=== PATIENT | female | born 1940 | race Caucasian/White ===

== ENCOUNTER → 2017-01-30 | Outpatient (CLI) | payer MEDICARE | END | disposition home or self-care (01) | LOC: GMAM 12:48 | PROVIDERS: ATTEND Family Medicine | DX: E03.9 Hypothyroidism, unspecified (principal); R29.898 Other symptoms and signs involving the musculoskeletal system ==

== ENCOUNTER → 2017-02-01 | Outpatient (CLI) | payer MEDICARE, OTHER ==
--- NOTE | 2017-02-02 11:53 | MRI ---
Study: MRI of the Left Hip. Indication: JOINT PAIN Technique: Multiplanar, multi sequence MRI of the left hip was obtained without intravenous contrast. Comparison: None. Findings : Grade 4 chondral loss throughout the entirety of the left hip joint with cortical remodeling and patchy subchondral cystic change of the medial aspects of the joint. There is mild medial migration of the femoral head. No acute fracture or osteonecrosis. Small joint line osteophytes. Degenerative tearing throughout the left hip labrum. Tendinosis bilateral hamstring tendon origins. Mild pubic symphysis osteoarthritis. Moderate to severe right hip osteoarthritis. IMPRESSION: Severe left hip osteoarthritis as above. No acute fracture or osteonecrosis. Additional findings as above. Electronically signed by: Dhruv Coppola MD 02/02/2017 11:52 AM CDT
== END ==
LOC: MRI 10:09
PROVIDERS: ATTEND Family Medicine
DX: R93.7 Abnormal findings on diagnostic imaging of other parts of musculoskeletal system (principal); R29.898 Other symptoms and signs involving the musculoskeletal system; M16.12 Unilateral primary osteoarthritis, left hip

== ENCOUNTER → 2017-05-28 | Outpatient (CLI) | payer MEDICARE, OTHER ==
--- NOTE | 2017-06-06 10:50 | MAM ---
EXAM DESCRIPTION: 3D Screening BILATERAL : Digital Mammography. CLINICAL HISTORY: 76 years Female SCREENING . No complaints. No other with breast cancer. Postmenopausal. Has taken HRT 5 or more years ago. Bilateral breast augmentation.. COMPARISON: None available at this time.. No prior reports available. TECHNIQUE: Bilateral CC and MLO projection full-field images, with [employer] Displacement 3-D tomosynthesis digital mammographic technique. Also bilateral synthesized CC/ MLO full-field images , with [employer] Displacement,. CAD not utilized. 2-D digital full-field images, MLO and CC projections bilaterally, non-displaced, with CAD. FINDINGS: The breast parenchymal density pattern is: Heterogeneously dense breast tissue, which may obscure small masses. Bilateral vascular calcifications. No focal, stellate mass or density, focal asymmetry , and no suspicious microcalcifications bilaterally. IMPRESSION: BI-RADS CATEGORY: 2 - BENIGN FINDINGS. FOLLOW UP: Routine digital bilateral screening, one year interval from May 2017. Written communication explaining the IMPRESSION and follow-up, will be mailed to the patient and referring health care provider. According to the [employer], yearly mammograms are recommended starting at age 40 and continuing as long as a woman is in good health. Any breast change noted on a breast self-exam should be reported promptly to the patient's healthcare provider. Breast MRI is recommended for women with an approximately 20-25% or greater lifetime risk of breast cancer, including women with a strong family history of breast or ovarian cancer and women who have been treated for Hodgkin's disease. A negative mammographic report should not delay tissue diagnosis in patients with significant clinical history or physical findings. Extremely dense breast tissue limits the sensitivity of digital mammography. Electronically signed by: Justen Fields MD 06/06/2017 10:48 AM [facility]
== END ==
LOC: MAMMO 13:16
PROVIDERS: ATTEND Family Medicine
DX: Z12.31 Encounter for screening mammogram for malignant neoplasm of breast (principal)
CPT/HCPCS: 77063; G0202

== ENCOUNTER 2017-07-18 05:36 | Day surgery (SDC) | payer MEDICARE, OTHER ==
[2017-07-18] MEDS ORDERED: LACTATED RINGERS 1,000 ML ONE (05:47)
[2017-07-18] MEDS ORDERED: BUPIVACAINE 0.25% INJ 30 ML VIAL INJ ONE (09:38)
[2017-07-18] MEDS ORDERED: LIDOCAINE 1% W/ EPINEPHRINE 20 ML VIAL INJ ONE (09:39)
[2017-07-18] MEDS ORDERED: fentaNYL CITRATE INJ 50 MCG/ML AMP ONE (09:40)
[2017-07-18] MEDS ORDERED: methylPREDNISolone ACETATE 80 MG/ML VIAL ONE (09:41)
[2017-07-18] MEDS ORDERED: LIDOCAINE 1% 10 ML VIAL INJ ONE (10:00)
[2017-07-18] MEDS ORDERED: PROPOFOL 200 MG/20 ML VIAL IV ONE (10:00)
[2017-07-19 09:36] VITALS: TEMP 97
[2017-07-19 09:37] VITALS: BP 124/80; O2SAT 95
--- NOTE | 2017-07-31 09:45 | OP ---
DATE OF PROCEDURE: 07/18/17 PREOPERATIVE DIAGNOSIS: 1. Hip osteoarthritis. POSTOPERATIVE DIAGNOSIS: 1. Hip osteoarthritis. PROCEDURE: 1. Intraarticular injection of the hip. SURGEON: Jose Felix MD. COFFEE BLENDER: Justen Phillip CST, SA-C. ANESTHESIA: Conscious sedation. COMPLICATIONS: None. FINDINGS: Severe arthritis of the hip. INDICATION: The patient has a long history of severe hip pain. She has a diagnosis of hip osteoarthritis. Because of her failure of conservative measures, she has requested operative intervention. After discussing the risks , benefits and alternatives to that, the patient has given informed consent for that. PROCEDURE: The patient was brought to the Operating Room and placed in supine position. Conscious sedation was administered and the leg was flexed, abducted and externally rotated. The groin was prepped and fluoroscopic imaging was used to confirm needle placement into the hip joint through a medial portal. Once placement had been confirmed, a combination of lidocaine and Depo-Medrol were injected into the joint. After injection, the needle was withdrawn. Pressure was held on the injection site. A sterile band-aid was placed. The patient was then taken back to the Day Surgery Unit. POSTOPERATIVE INSTRUCTIONS: The patient will be weight-bearing as tolerated. The patient will followup with us in about 10 days. #[id number] [facility]
== END 2017-07-18 10:55 | disposition home or self-care (01) ==
LOC: AMB 05:36
PROVIDERS: ATTEND Orthopaedic Surgery
DX: M16.12 Unilateral primary osteoarthritis, left hip (principal); I10 Essential (primary) hypertension; K21.9 Gastro-esophageal reflux disease without esophagitis; E03.9 Hypothyroidism, unspecified; Z88.2 Allergy status to sulfonamides; Z88.8 Allergy status to other drugs, medicaments and biological substances; Z91.040 Latex allergy status; Z79.82 Long term (current) use of aspirin; Z79.899 Other long term (current) drug therapy
CPT/HCPCS: 01200; 20610; 76000; 87070; J1030; J3010; J3490; J7120

== ENCOUNTER → 2017-08-07 | Outpatient (CLI) | payer MEDICARE, OTHER | LOC: GMAM 10:48 | PROVIDERS: ATTEND Family Medicine | DX: E03.9 Hypothyroidism, unspecified (principal); I10 Essential (primary) hypertension ==

== ENCOUNTER → 2018-01-03 | Outpatient (CLI) | payer MEDICARE, OTHER | LOC: GMAM 10:23 | PROVIDERS: ATTEND Family Medicine | DX: E03.9 Hypothyroidism, unspecified (principal) ==

== ENCOUNTER 2018-01-09 05:42 | Day surgery (SDC) | payer MEDICARE, OTHER ==
[2018-01-09] MEDS ORDERED: SODIUM CHLORIDE 0.9% 250ML 0 ML ONE (05:59)
[2018-01-09] MEDS ORDERED: VANCOMYCIN HCL INJ 1,000 MG VIAL IVPB ONE (05:59)
[2018-01-09] MEDS ORDERED: LACTATED RINGERS 0 ML ONE (05:59)
[2018-01-09] MEDS ORDERED: LACTATED RINGERS 1,000 ML ONE (06:05)
[2018-01-09] MEDS ORDERED: fentaNYL CITRATE INJ 50 MCG/ML AMP ONE (08:21)
[2018-01-09] MEDS ORDERED: LIDOCAINE 1% W/ EPINEPHRINE 20 ML VIAL INJ ONE (08:33)
[2018-01-09] MEDS ORDERED: methylPREDNISolone ACETATE 80 MG/ML VIAL ONE (08:33)
[2018-01-09] MEDS: BUPIVACAINE 0.25% INJ 30 ML VIAL INJ ONE ×2 (08:46→09:08)
[2018-01-09] MEDS ORDERED: LIDOCAINE 1% 10 ML VIAL INJ ONE (10:00)
[2018-01-09] MEDS ORDERED: PROPOFOL 200 MG/20 ML VIAL IV ONE (10:00)
--- NOTE | 2018-01-09 10:16 | OP ---
DATE OF PROCEDURE: 01/09/18 PREOPERATIVE DIAGNOSIS: 1. Left hip osteoarthritis. POSTOPERATIVE DIAGNOSIS: 1. Left hip osteoarthritis. PROCEDURE: 1. Intraarticular injection. PROCEDURE: 1. Intraarticular injection. SURGEON: Jose Felix MD. TEACHER CCLC: Justen Phillip CST, SA-C. ANESTHESIA: General anesthesia. COMPLICATIONS: None. 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 INDICATION: Ms. Vivar has a history of severe hip pain that has been getting progressively worse. She has had one injection in her hip that seemed to give her some relief. However, she has started to have pain again. Because of her ongoing discomfort, she has requested repeat injection. After discussing the risks, benefits and alternatives to that, the patient has given informed consent for total hip arthroplasty. PROCEDURE: The patient was brought to the Operating Room and placed in supine position. Conscious sedation was administered and the leg was flexed, abducted and externally rotated. The groin was prepped and fluoroscopic imaging was used to confirm needle placement into the hip joint through a medial portal. Once placement had been confirmed, a combination of lidocaine and Depo-Medrol were injected into the joint. After injection, the needle was withdrawn. Pressure was held on the injection site. A sterile band-aid was placed. The patient was then taken back to the Day Surgery Unit. POSTOPERATIVE INSTRUCTIONS: The patient will be weight-bearing as tolerated. The patient will followup with us in 10 days. #[id number] [facility]
[2018-01-09 13:07] VITALS: BP 171/85; TEMP 97.6; O2SAT 97
== END 2018-01-09 11:45 | disposition home or self-care (01) ==
LOC: AMB 05:42
PROVIDERS: ATTEND Orthopaedic Surgery
DX: M16.12 Unilateral primary osteoarthritis, left hip (principal); I10 Essential (primary) hypertension; K21.9 Gastro-esophageal reflux disease without esophagitis; Z88.2 Allergy status to sulfonamides; Z88.5 Allergy status to narcotic agent; Z91.040 Latex allergy status; Z79.899 Other long term (current) drug therapy
CPT/HCPCS: 01200; 20610; 76000; 87070; J1030; J3010; J3490; J7120

== ENCOUNTER → 2018-05-27 | Outpatient (CLI) | payer MEDICARE, OTHER ==
--- NOTE | 2018-05-27 17:19 | MAM ---
EXAM DESCRIPTION: 3D Screening BILATERAL : Digital Mammography. CLINICAL HISTORY: 77 years Female SCREEN . No complaints or personal history of breast cancer. Daughter with breast cancer. Childbirth. Postmenopausal x40 years. HRT 5 or more years ago. Bilateral breast augmentation. Lifetime risk of developing breast cancer (Tyrer-Cuzick model)(%): Not calculated COMPARISON: Bilateral screening digital breast tomosynthesis 05/28/2017. TECHNIQUE: Bilateral CC and MLO projection full-field images, with [employer] Displacement digital tomosynthesis mammographic technique. Bilateral 2-D digital full-field images, MLO and CC projections, non-displaced. CAD Bilateral digital 2-D full-field MLO images. CAD not available for tomosynthesis or 2-D images. FINDINGS: The breast parenchymal density pattern is: Heterogeneously dense breast tissue, which may obscure small masses. No skin thickening or nipple retraction. Bilateral vascular calcifications. Bilateral solitary parenchymal calcifications. Bilateral retroglandular silicone implants with the capsules partially calcified. No obvious leakage. No new focal, stellate mass or density, focal asymmetry , and no suspicious microcalcifications bilaterally. Stable mammograms compared to prior study. IMPRESSION: Benign exam. BIRAD CATEGORY: 2 BENIGN FINDINGS. RECOMMENDATIONS: FOLLOW UP: Routine digital bilateral mammographic screening, one year interval from May 2018. Written communication explaining the IMPRESSION and follow-up, will be mailed to the patient and referring health care provider. According to the [employer], yearly mammograms are recommended starting at age 40 and continuing as long as a woman is in good health. Any breast change noted on a breast self-exam should be reported promptly to the patient's healthcare provider. Breast MRI is recommended for women with an approximately 20-25% or greater lifetime risk of breast cancer, including women with a strong family history of breast or ovarian cancer and women who have been treated for Hodgkin's disease. A negative mammographic report should not delay tissue diagnosis in patients with significant clinical history or physical findings. Extremely dense breast tissue limits the sensitivity of digital mammography. 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
== END ==
LOC: MAMMO 10:25
PROVIDERS: ATTEND Family Medicine
DX: Z12.31 Encounter for screening mammogram for malignant neoplasm of breast (principal)